=== PATIENT | female | born 2000 | race Caucasian/White ===

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

== ENCOUNTER 2018-01-17 03:31 | Inpatient (IN) ==
--- NOTE | 2018-01-17 04:17 | P.HPOB ---
History of Present Illness Primary Care Physician: Avis Remy MD, R2 - Inpatient Certification I certify that the inpatient services were ordered in accordance with Medicare regulations governing the order. This includes certification that hospital inpatient services are reasonable and necessary and in the case of services not specified as inpatient-only under 42 CFR 419.22(n), that they are appropriately provided as inpatient services in accordance to with the 2-midnight benchmark under 43 CFR 412.3(e) PMFSH - Travel History Recent Travel in the [place] Within the Last 8 Weeks: No Recent Travel Out of the Country Within the Last 8 Weeks: No Medications and Allergies Allergies Allergy/AdvReac Type Severity Reaction Status Date / Time No Known Allergies Allergy Unverified 01/17/18 03:41 Home Medications Medication Instructions Recorded Confirmed Type PNV cmb#95-ferrous fumarate-FA 1 tab PO DAILY 01/03/18 01/17/18 History [] Exam Vital signs: Vital Signs 01/17/18 03:51 01/17/18 03:52 Temperature 98.1 F Pulse Rate 67 Respiratory Rate 17 Blood Pressure 117/65 Intake & Output 01/16/18 01/16/18 01/17/18 06:59 18:59 06:59 Weight 56.699 kg Caprini VTE Risk Assessment Caprini Risk Assessment Model: Point Value = 1 Point Value = 2 Point Value = 3 Point Value = 5 Age 41-60 Minor surgery BMI > 25 kg/m2 Swollen legs Varicose veins or History of unexplained or recurrent spontaneous Oral contraceptives or hormone replacement Sepsis (< 1 month) Serious lung disease, including pneumonia (< 1 month) Abnormal pulmonary function Acute myocardial infarction Congestive heart failure (< 1 month) History of inflammatory bowel disease Medical patient at bed rest Age 61-74 Arthroscopic surgery Major open surgery (> 45 min) Laparoscopic surgery (> 45 min) Malignancy Confined to bed (> 72 hours) Immobilizing plaster cast Central venous access Age >= 75 History of VTE Family history of VTE Factor V Leiden Prothrombin [id number] Lupus anticoagulant Anticardiolipin antibodies Elevated serum homocysteine Heparin-induced thrombocytopenia Other congenital or acquired thrombophilia Stroke (< 1 month) Elective arthroplasty Hip, pelvis, or leg fracture Acute spinal cord injury (< 1 month) Prophylaxis Regimen: Total Risk Factor Score Risk Level Prophylaxis Regimen 0-1 Low Early ambulation 2 Moderate Order ONE of the following: *Sequential Compression Device (SCD) *Heparin 5000 units SQ BID 3-4 Higher Order ONE of the following medications: *Heparin 5000 units SQ TID *Enoxaparin/Lovenox 40 mg SQ daily (WT < 150 kg, CrCl > 30 mL/min) *Enoxaparin/Lovenox 30 mg SQ daily (WT < 150 kg, CrCl > 10-29 mL/min) *Enoxaparin/Lovenox 30 mg SQ BID (WT < 150 kg, CrCl > 30 mL/min) AND/OR *Sequential Compression Device (SCD) 5 or more Highest Order ONE of the following medications: *Heparin 5000 units SQ TID (Preferred with Epidurals) *Enoxaparin/Lovenox 40 mg SQ daily (WT < 150 kg, CrCl > 30 mL/min) *Enoxaparin/Lovenox 30 mg SQ daily (WT < 150 kg, CrCl > 10-29 mL/min) *Enoxaparin/Lovenox 30 mg SQ BID (WT < 150 kg, CrCl > 30 mL/min) AND *Sequential Compression Device (SCD)
--- NOTE | 2018-01-17 04:20 | ED ---
History of Present Illness Primary Care Physician: Avis Remy MD, R2 Chief Complaint: painful contractions History of Present Illness: This is a 17-year-old at 38 weeks (data via ultrasound at 18 weeks) presenting to the OB ED with painful contractions. She is a continuity patient of mine. Estimated due date 01/31/2018. No abnormalities or complications associated with this . She is here with boyfriend and daughter. Patient states that yesterday at 2 PM, she started having contractions. At 1: 30 AM this morning, they became more frequent and painful, about 2-3 minutes apart. Endorses adequate hydration, denies sexual activity. States that before she came to the OB ED, she felt liquid running down her leg while she was showering. Is not sure whether or not she ruptured. Denies vaginal bleeding, abnormal vaginal discharge. Endorses movement. Denies headaches, vision changes, upper abdominal pain. No history of sexually transmitted diseases or infections. Patient had a history of spontaneous at 8 weeks. Had a previous spontaneous vaginal delivery at 40 weeks, delivered a female at 6 pounds 8 ounces. There were no problems or complications with this delivery. labs were performed and within normal limits except for rubella and GBS culture. - Inpatient Certification I certify that the inpatient services were ordered in accordance with Medicare regulations governing the order. This includes certification that hospital inpatient services are reasonable and necessary and in the case of services not specified as inpatient-only under 42 CFR 419.22(n), that they are appropriately provided as inpatient services in accordance to with the 2-midnight benchmark under 43 CFR 412.3(e) Estimated Total Length of Stay (Days): 3 Plans for Post Hospital Care: Home Review of Systems All other systems reviewed negative except as stated in HPI PMFSH - History History Provided By: Patient - Medical / Surgical Hx Neg / Unobtainable Medical Problems Denied: Yes Surgical History: No Previous Surgery - Family History Family History: Family History (Last Updated 01/17/18 @ 04:48 by Avis Remy MD, R2) Other No pertinent family history - Social History I have reviewed the patient's Social History: Yes - Tobacco History Smoking Status: Never smoker - Alcohol History How Often Do You Have a Drink Containing Alcohol: Never - Substance Use History Substance History: No History of Abuse - Travel History Recent Travel in the [facility] Within the Last 8 Weeks: No Recent Travel Out of the Country Within the Last 8 Weeks: No Medications and Allergies Allergies Allergy/AdvReac Type Severity Reaction Status Date / Time No Known Allergies Allergy Unverified 01/17/18 03:41 Home Medications Medication Instructions Recorded Confirmed Type PNV cmb#95-ferrous fumarate-FA 1 tab PO DAILY 01/03/18 01/17/18 History [] Exam Vital signs: Vital Signs 01/17/18 03:51 01/17/18 03:52 Temperature 98.1 F Pulse Rate 67 Respiratory Rate 17 Blood Pressure 117/65 Intake & Output 01/16/18 01/16/18 01/17/18 06:59 18:59 06:59 Weight 56.699 kg Narrative: GENERAL: Well-nourished, well-developed patient. SKIN: Warm and dry. HEAD: Normocephalic and atraumatic. EYES: No scleral icterus. No injection or drainage. ENT: No nasal drainage noted. Mucous membranes pink. Airway patent. NECK: Supple, trachea midline. No JVD. CARDIOVASCULAR: Regular rate and rhythm without murmurs, gallops, or rubs. RESPIRATORY: Breath sounds equal bilaterally. No accessory muscle use. ABDOMEN/GI: Abdomen soft, non-tender, bowel sounds present, no rebound, no guarding Gravid to 40 weeks size GENITOURINARY: External Genitalia: intact and normal in appearance Cervix: [] Dilatation: 5 cm Effacement: 80% Station: -1 Presentation: vertex Membranes: [ruptured] Uterine Contractions: q2-3 min FHT's: Category: 1 Baseline: 130 Reactive: yes Variability: mod Results - Labs CBC & Chem 7: 01/17/18 04:30 01/17/18 04:30 Assessment and Plan - Diagnosis (1) with 38 completed weeks gestation Code(s): Z3A.38 - 38 weeks gestation of Status: Acute - Plan A/P Patient is a 17 year old at 38/0 wks gestation who presents to OB ED with contraction. Category 1 tracing. /-1. Amnisure negative. Expectant management for vaginal delivery. //Intrauterine @38 wks: - Clear liquid diet - Epidural requested for pain - rapid GBS ordered - U/A, rubella, and type and screen pending Discussed w/Dr. Gama Discharge Plan - Discharge Disposition Patient Disposition: 30 Still Patient - Physicians Team ED Provider: Keli Gama V Primary Care Provider: Avis Remy
[2018-01-17] MEDS ORDERED: fentaNYL 2MCG-Bupiv 0.125% Epi 150 ML EPIDURAL ONE (04:23)
[2018-01-17] MEDS ORDERED: Sod Chloride 0.9% Inj 1,000 ML IV.CONT PRN (04:33)
[2018-01-17] MEDS ORDERED: Naloxone Inj 0.4 MG/ML Vial IV.PUSH PRN ×2 (04:33→12:00)
[2018-01-17] MEDS ORDERED: fentaNYL Citrate Inj 100 MCG/2 ML Ampul IV.PUSH PRN ×2 (04:33)
[2018-01-17] MEDS ORDERED: Sodium Chlor 0.9% Inj 500 ML IV.SIG PRN (04:33)
[2018-01-17] MEDS ORDERED: Oxytocin 30 Units/500ml Premix 30 UNITS/500 ML BAG IV.SIG ONE (04:33)
[2018-01-17] MEDS ORDERED: Citric Acid/Sodium Citrate Liq 30 ML UDC PO SCH (04:45)
[2018-01-17 04:50] LABS: Baso # (Auto) 0.1 th/mm3 (0.0-0.2); Baso % (Auto) 0.5 % (0.0-2.0); Eos # (Auto) 0.1 th/mm3 (0.0-0.4); Eos % (Auto) 0.9 % (0.0-4.0); Hematocrit 30.9 % (35.0-46.0); Hemoglobin 9.8 gm/dL (11.6-15.3); Lymph # (Auto) 2.1 th/mm3 (1.0-4.8); Lymph % (Auto) 22.3 % (9.0-44.0); Mean Corpuscular HGB Conc 31.7 % (32.0-36.0); Mean Corpuscular Hemoglobin 21.9 pg (27.0-34.0); Mean Corpuscular Volume 69.2 fL (80.0-100.0); Mean Platelet Volume 9.3 fL (7.0-11.0); Mono # (Auto) 0.7 th/mm3 (0.0-0.9); Mono % (Auto) 7.2 % (0.0-8.0); Neut # (Auto) 6.6 th/mm3 (1.8-7.7); Neut % (Auto) 69.1 % (16.0-70.0); Platelet Count 218 th/mm3 (150-450); Red Blood Count 4.46 mil/mm3 (4.00-5.30); White Blood Count 9.5 th/mm3 (4.0-11.0)
[2018-01-17 04:53] LABS: Bacteria,Urine Rare /hpf; Bilirubin,Urine Negative (Negative); Clarity,Urine Clear (Clear); Color,Urine Yellow (Yellw/Straw); Glucose,Urine (UA) Negative (Negative); Leukocyte Esterase,Urine Negative (Negative); Mucus,Urine Few /lpf (Occasional); Nitrite,Urine Negative (Negative); Squamous Epithelial Cell,Urine 1 /hpf (0-5)
[2018-01-17 04:54] LABS: Amphetamine Urine With Conf Neg (Neg); Benzodiazepine Urine With Conf Neg (Neg)
--- NOTE | 2018-01-17 04:58 | P.HPOB ---
History of Present Illness Primary Care Physician: Avis Remy MD, R2 Chief Complaint: painful contractions History of Present Illness: This is a 17-year-old at 38 weeks (data via ultrasound at 18 weeks) presenting to the OB ED with painful contractions. She is a continuity patient of mine. Estimated due date 01/31/2018. No abnormalities or complications associated with this . She is here with boyfriend and daughter. Patient states that yesterday at 2 PM, she started having contractions. At 1: 30 AM this morning, they became more frequent and painful, about 2-3 minutes apart. Endorses adequate hydration, denies sexual activity. States that before she came to the OB ED, she felt liquid running down her leg while she was showering. Is not sure whether or not she ruptured. Denies vaginal bleeding, abnormal vaginal discharge. Endorses movement. Denies headaches, vision changes, upper abdominal pain. No history of sexually transmitted diseases or infections. Patient had a history of spontaneous at 8 weeks. Had a previous spontaneous vaginal delivery at 40 weeks, delivered a female at 6 pounds 8 ounces. There were no problems or complications with this delivery. labs were performed and within normal limits except for rubella and GBS culture. - Inpatient Certification I certify that the inpatient services were ordered in accordance with Medicare regulations governing the order. This includes certification that hospital inpatient services are reasonable and necessary and in the case of services not specified as inpatient-only under 42 CFR 419.22(n), that they are appropriately provided as inpatient services in accordance to with the 2-midnight benchmark under 43 CFR 412.3(e) Estimated Total Length of Stay (Days): 3 Plans for Post Hospital Care: Home Review of Systems All other systems reviewed negative except as stated in HPI PMFSH - History History Provided By: Patient - Medical / Surgical Hx Neg / Unobtainable Medical Problems Denied: Yes Surgical History: No Previous Surgery - Family History Family History: Family History (Last Updated 01/17/18 @ 04:48 by Avis Remy MD, R2) Other No pertinent family history - Social History I have reviewed the patient's Social History: Yes - Tobacco History Smoking Status: Never smoker - Alcohol History How Often Do You Have a Drink Containing Alcohol: Never - Substance Use History Substance History: No History of Abuse - Travel History Recent Travel in the [facility] Within the Last 8 Weeks: No Recent Travel Out of the Country Within the Last 8 Weeks: No Medications and Allergies Allergies Allergy/AdvReac Type Severity Reaction Status Date / Time No Known Allergies Allergy Unverified 01/17/18 03:41 Home Medications Medication Instructions Recorded Confirmed Type PNV cmb#95-ferrous fumarate-FA 1 tab PO DAILY 01/03/18 01/17/18 History [] Exam Vital signs: Vital Signs 01/17/18 03:51 01/17/18 03:52 Temperature 98.1 F Pulse Rate 67 Respiratory Rate 17 Blood Pressure 117/65 Intake & Output 01/16/18 01/16/18 01/17/18 06:59 18:59 06:59 Weight 56.699 kg Narrative: GENERAL: Well-nourished, well-developed patient. SKIN: Warm and dry. HEAD: Normocephalic and atraumatic. EYES: No scleral icterus. No injection or drainage. ENT: No nasal drainage noted. Mucous membranes pink. Airway patent. NECK: Supple, trachea midline. No JVD. CARDIOVASCULAR: Regular rate and rhythm without murmurs, gallops, or rubs. RESPIRATORY: Breath sounds equal bilaterally. No accessory muscle use. ABDOMEN/GI: Abdomen soft, non-tender, bowel sounds present, no rebound, no guarding Gravid to 40 weeks size GENITOURINARY: External Genitalia: intact and normal in appearance Cervix: [] Dilatation: 5 cm Effacement: 80% Station: -1 Presentation: vertex Membranes: [ruptured] Uterine Contractions: q2-3 min FHT's: Category: 1 Baseline: 130 Reactive: yes Variability: mod Results - Labs CBC & Chem 7: 01/17/18 04:30 01/17/18 04:30 Assessment and Plan - Diagnosis (1) with 38 completed weeks gestation Code(s): Z3A.38 - 38 weeks gestation of Status: Acute - Plan A/P Patient is a 17 year old at 38/0 wks gestation who presents to OB ED with contraction. Category 1 tracing. 80/-1. Amnisure negative. Expectant management for vaginal delivery. //Intrauterine @38 wks: - Clear liquid diet - Epidural requested for pain - rapid GBS ordered - U/A, rubella, and type and screen pending Discussed w/Dr. Gama
[2018-01-17 05:00] LABS: Alanine Aminotransferase 13 U/L (9-42); Albumin 2.7 g/dL (3.4-5.0); Anion Gap 12 meq/L (5-15); Aspartate Aminotransferase 26 U/L (16-38); Blood Urea Nitrogen 3 mg/dL (7-18); Calcium 8.1 mg/dL (8.5-10.1); Carbon Dioxide 22.2 meq/L (21.0-32.0); Chloride 107 meq/L (98-107); Glomerular Filtration Rate Greater Than 89 mL/min (>89); Glucose,Random 90 mg/dL (74-106); Potassium 3.9 meq/L (3.5-5.1); Sodium 141 meq/L (136-145)
[2018-01-17 05:03] LABS: Alkaline Phosphatase 300 U/L (45-117); Total Protein 6.7 g/dL (6.4-8.2)
[2018-01-17] MEDS ORDERED: Lidocaaine 1.5%/Epinephrine 1:200,000 PF Inj 5 ML Amp ONE (05:16)
[2018-01-17] MEDS ORDERED: fentaNYL 2MCG-Bupiv 0.125% Epi 150 ML EPIDURAL PRN (05:50)
[2018-01-17] MEDS ORDERED: fentaNYL Citrate Inj 100 MCG/2 ML Ampul EPIDURAL ONE (05:50)
--- NOTE | 2018-01-17 06:34 | P.OBLABOR ---
Objective Vital Signs: Vital Signs - 8 hr 01/17/18 03:51 01/17/18 03:52 01/17/18 05:14 Temperature 98.1 F Pulse Rate 67 76 Respiratory Rate 17 Blood Pressure 117/65 133/62 01/17/18 05:16 01/17/18 05:25 01/17/18 05:29 Temperature Pulse Rate 76 84 Respiratory Rate 22 Blood Pressure 114/80 111/61 01/17/18 05:30 01/17/18 05:35 01/17/18 05:40 Temperature Pulse Rate 74 81 76 Respiratory Rate Blood Pressure 113/54 L 100/83 112/58 L 01/17/18 05:45 01/17/18 05:50 01/17/18 05:55 Temperature Pulse Rate 68 73 92 H Respiratory Rate Blood Pressure 111/62 118/61 116/91 H Objective: Pelvic Exam: Performed by nursing before I arrived. Cervix: [-] Dilatation: 7 Effacement: 90 Station: -1 Presentation: vertex Membranes: [intact] Uterine Contractions: 2-3 min FHT's: Category: [1] Baseline: [130] Reactive: [yes] Variability: [mod] Decels: [no] Assessment and Plan - Diagnosis (1) with 38 completed weeks gestation Code(s): Z3A.38 - 38 weeks gestation of Status: Acute - Plan A/P Patient is a 17 year old at 38/0 wks gestation admitted for labor. FHT reassuring, progressing well, is now 7 cm dilated. Membranes still intact, Contraction MVUs <200. Epidural [address]. Expectant management for vaginal delivery.
--- NOTE | 2018-01-17 09:59 | P.OBLABOR ---
Subjective Interval history: Patient states she is doing well. No problems or complaints. Objective Vital Signs: Vital Signs - 8 hr 01/17/18 03:51 01/17/18 03:52 01/17/18 05:14 Temperature 98.1 F Pulse Rate 67 76 Respiratory Rate 17 Blood Pressure 117/65 133/62 01/17/18 05:16 01/17/18 05:25 01/17/18 05:29 Temperature Pulse Rate 76 84 Respiratory Rate 22 Blood Pressure 114/80 111/61 01/17/18 05:30 01/17/18 05:35 01/17/18 05:40 Temperature Pulse Rate 74 81 76 Respiratory Rate Blood Pressure 113/54 L 100/83 112/58 L 01/17/18 05:45 01/17/18 05:50 01/17/18 05:55 Temperature Pulse Rate 68 73 92 H Respiratory Rate Blood Pressure 111/62 118/61 116/91 H 01/17/18 06:16 01/17/18 06:30 01/17/18 06:45 Temperature Pulse Rate 76 69 84 Respiratory Rate Blood Pressure 118/54 L 121/58 L 115/62 01/17/18 06:59 01/17/18 07:00 01/17/18 08:07 Temperature 98.3 F Pulse Rate 73 77 Respiratory Rate 18 Blood Pressure 130/67 120/50 L 01/17/18 08:15 01/17/18 09:00 01/17/18 09:53 Temperature 97.9 F Pulse Rate 71 Respiratory Rate 18 18 18 Blood Pressure 102/41 L Objective: Pelvic Exam: Cervix: midline Dilatation: 8 cm Effacement: 90 Station: 0 Presentation: [-] Membranes: ruptured during exam Uterine Contractions: irregular FHT's: Category: 1 Baseline: 130 Reactive: yes Variability: mod Decels: no Assessment and Plan - Diagnosis (1) with 38 completed weeks gestation Code(s): Z3A.38 - 38 weeks gestation of Status: Acute - Plan A/P: Patient is a 17 year old at 38/0 wks gestation admitted for labor. Membranes ruptured during exam. , FHT Cat 1. Con't expectant management.
[2018-01-17] MEDS ORDERED: Oxytocin 30 Units/500ml Premix 30 UNITS/500 ML BAG IV.SIG PRN (10:16)
--- NOTE | 2018-01-17 11:42 | P.OBLABOR ---
Subjective Interval history: Mom doing ok. Objective Vital Signs: Vital Signs - 8 hr 01/17/18 03:51 01/17/18 03:52 01/17/18 05:14 Temperature 98.1 F Pulse Rate 67 76 Respiratory Rate 17 Blood Pressure 117/65 133/62 01/17/18 05:16 01/17/18 05:25 01/17/18 05:29 Temperature Pulse Rate 76 84 Respiratory Rate 22 Blood Pressure 114/80 111/61 01/17/18 05:30 01/17/18 05:35 01/17/18 05:40 Temperature Pulse Rate 74 81 76 Respiratory Rate Blood Pressure 113/54 L 100/83 112/58 L 01/17/18 05:45 01/17/18 05:50 01/17/18 05:55 Temperature Pulse Rate 68 73 92 H Respiratory Rate Blood Pressure 111/62 118/61 116/91 H 01/17/18 06:16 01/17/18 06:30 01/17/18 06:45 Temperature Pulse Rate 76 69 84 Respiratory Rate Blood Pressure 118/54 L 121/58 L 115/62 01/17/18 06:59 01/17/18 07:00 01/17/18 08:07 Temperature 98.3 F Pulse Rate 73 77 Respiratory Rate 18 Blood Pressure 130/67 120/50 L 01/17/18 08:15 01/17/18 09:00 01/17/18 09:53 Temperature 97.9 F Pulse Rate 71 Respiratory Rate 18 18 18 Blood Pressure 102/41 L 01/17/18 09:54 01/17/18 10:31 01/17/18 11:15 Temperature Pulse Rate 65 61 79 Respiratory Rate Blood Pressure 107/60 109/55 L 01/17/18 11:20 01/17/18 11:35 Temperature Pulse Rate 81 84 Respiratory Rate Blood Pressure Objective: Pelvic Exam: Cervix: [midline] Dilatation: [8 cm] Effacement: [90] Station: [0] Presentation: [left occiput transverse] Membranes: [ruptured] Uterine Contractions: [irregular] FHT's: Category: [2] Baseline: [120] Reactive: [yes] Variability: [-] Decels: [-] Assessment and Plan - Diagnosis (1) with 38 completed weeks gestation Code(s): Z3A.38 - 38 weeks gestation of Status: Acute - Plan A/P: Patient is a 17 year old at 38/0 wks gestation admitted for labor. Appears to be failing to progress. Based on vaginal exam, this is likely due to baby position. Plan to change Mom positions and resume Pit starting out at a low level. Recheck in 1 hour. Discussed w/Dr. Durand
[2018-01-17] MEDS ORDERED: Benzocaine 20% Top Spray 60 ML Can TOPICAL PRN (12:00)
[2018-01-17] MEDS ORDERED: Zolpidem Tartrate 5 MG Tablet PO PRN (12:00)
[2018-01-17] MEDS ORDERED: Acetaminophen 325 MG Tablet PO PRN (12:00)
[2018-01-17] MEDS ORDERED: Witch Hazel 50%/Glyderin 12.5% 40 Pad Jar RECTAL PRN (12:00)
[2018-01-17] MEDS ORDERED: Bisacodyl 10 MG Supp RECTAL PRN (12:00)
[2018-01-17] MEDS ORDERED: Oxytocin 30 Units/500ml Premix 30 UNITS/500 ML BAG IV.CONT PRN (12:00)
--- NOTE | 2018-01-17 12:00 | P.OBDELI ---
Weeks Gestation: 38 Artificial Rupture of Membrane: Yes Artificial ROM Date: 01/17/18 Artificial ROM Time: 09:00 Anesthesia: Epidural Episiotomy: none Vaginal Delivery: Normal, Spontaneous Presentation: Occiput anterior Nuchal Cord: x1 (loose) Delayed Cord Clamping (45 sec): Yes Placenta: Spontaneous delivery, Intact, Uterus explored +, 3 vessel cord Laceration: None Estimated blood loss (mL): 50 Infant: Male Male A Delivery Date: 01/17/18 Delivery Time: 11:50 Weight: 2770 kg score (1 min): 9 score (5 min): 9
[2018-01-17] MEDS ORDERED: Measles/Mumps/Rubella Vaccine Inj 0.5 ML Vial SQ ONE (16:00)
[2018-01-17] MEDS ORDERED: Diphtheria/Tetanus/Pertussis Vaccine Inj 0.5 ML Syringe IM ONE (16:00)
[2018-01-17] MEDS ORDERED: Senna/Docusate Sodium 8.6/50 MG Tablet PO SCH (21:00)
--- NOTE | 2018-01-18 08:18 | P.PNOB ---
Subjective Post day: 1 Interval history: Patient is a 17-year-old delivered at 38 weeks. Patient is day 1 after . Patient's pain is well-controlled. Patient reports eating and drinking without any nausea or vomiting. Patient reports minimal bleeding. Patient has passed gas but no bowel movements. Patient is walking without lower extremity pain or shortness of breath. Patient reports desire for contraception and breast-feeding. Objective Vital Signs/I&O: Vital Signs 01/17/18 09:00 01/17/18 09:53 01/17/18 09:54 Temperature 97.9 F Pulse Rate 71 65 Respiratory Rate 18 18 Blood Pressure 102/41 L 107/60 01/17/18 10:31 01/17/18 10:45 01/17/18 11:15 Temperature Pulse Rate 61 79 Respiratory Rate 18 Blood Pressure 109/55 L 01/17/18 11:20 01/17/18 11:35 01/17/18 11:40 Temperature Pulse Rate 81 84 99 H Respiratory Rate Blood Pressure 01/17/18 12:00 01/17/18 12:06 01/17/18 12:07 Temperature Pulse Rate 69 73 69 Respiratory Rate Blood Pressure 181/151 H 112/58 L 01/17/18 12:15 01/17/18 12:33 01/17/18 12:58 Temperature Pulse Rate 69 63 62 Respiratory Rate 18 18 18 Blood Pressure 114/59 L 120/72 105/58 L 01/17/18 12:59 01/17/18 14:24 01/17/18 20:00 Temperature 98.9 F 98.4 F 98.0 F Pulse Rate 16 L 74 Respiratory Rate 16 18 Blood Pressure 115/64 120/69 Intake & Output 01/17/18 01/18/18 01/18/18 18:59 06:59 18:59 Intake Total 1999 Balance 1999 Intake: IV 1999 LR 1000 mL Inj 1,000 ML @ 125 1999 / 1999 mls/hr IV.CONT .Q8H [facility] Rx#: [id number] Result Diagrams: 01/18/18 09:00 01/17/18 04:30 Objective Remarks: GENERAL: Well-nourished, well-developed patient. CARDIOVASCULAR: Regular rate and rhythm without murmurs, gallops, or rubs. RESPIRATORY: Breath sounds equal bilaterally. No accessory muscle use. ABDOMEN/GI: Abdomen soft, non-tender. Fundus: Firm, non-tender at umbilicus. GENITOURINARY: Light to moderate bleeding. EXTREMITIES: No cyanosis or edema, non-tender, without signs of DVT. Medications and IVs: Active Medications Acetaminophen (Tylenol) 650 mg PO Q4H PRN PRN Reason: PAIN SCALE 1 TO 2 Al Hydroxide/Mg Hydroxide (Milk Of Magnesia Liq) 30 ml PO Q12H PRN PRN Reason: Mild Constipation Benzocaine (Americaine 20% [place]) 1 spray TOPICAL Q4H PRN PRN Reason: For Perineum Discomfort Bisacodyl (Dulcolax Supp) 10 mg RECTAL DAILY PRN PRN Reason: SEVERE CONSITIPATION Citric Acid/Sodium Citrate (Sodium Citrate/Citric Acid Liq) 30 ml PO [employer] [facility] Stop: 01/21/18 04:44 Fentanyl Citrate (Fentanyl Inj) 50 mcg IV.PUSH Q1H PRN PRN Reason: Pain Scale 3 - 5 Last Admin: 01/17/18 04:41 Dose: 50 mcg Fentanyl Citrate (Fentanyl Inj) 100 mcg IV.PUSH Q1H PRN PRN Reason: PAIN SCALE 6 TO 10 Lactated Ringer's (Lr 1000 Ml Inj) 1,000 mls @ 125 mls/hr IV.CONT .Q8H [facility] Last Admin: 01/18/18 06:14 Dose: Not Given Lactated Ringer's (Lr 1000 Ml Inj) 1,000 mls @ 3,000 mls/hr IV.SIG UNSCH PRN PRN Reason: compromise or epidural Sodium Chloride (Ns Inj) 500 mls @ 1,000 mls/hr IV.SIG UNSCH PRN PRN Reason: SEE LABEL COMMENTS Sodium Chloride (Ns Inj) 1,000 mls @ 100 mls/hr IV.CONT .Q10H PRN PRN Reason: SEE LABEL COMMENTS Fentanyl/Bupivacaine/Sodium Chlor (Fentanyl 2 Mcg-Bupiv 0.125% Epi) 150 mls @ 10 mls/hr EPIDURAL PRN PRN PRN Reason: for Labor Pain Last Admin: 01/17/18 06:03 Dose: 10 mls/hr Oxytocin (Pitocin 30 Units/Ns 500 Ml Premix) 30 units in 500 mls @ 1 mls/hr IV.SIG TITRATE PRN; Protocol PRN Reason: For induction of labor Last Admin: 01/17/18 10:30 Dose: 1 milliunit/min, 1 mls/hr Oxytocin (Pitocin 30 Units/Ns 500 Ml Premix) 30 units in 500 mls @ 100 mls/hr IV.CONT UNSCH PRN PRN Reason: Heavy bleeding Ibuprofen (Motrin) 800 mg PO Q8H PRN PRN Reason: For Cramping Last Admin: 01/18/18 03:31 Dose: 800 mg Lactulose (Lactulose Liq) 30 ml PO DAILY PRN PRN Reason: SEVERE CONSITIPATION Lidocaine HCl (Xylocaine 1% Inj) 0.1 ml I-DERMAL PRN PRN PRN Reason: For IV start Stop: 01/20/18 04:32 Lidocaine HCl (Xylocaine 1% Inj) 10 ml INFILTRATN PRN PRN PRN Reason: For episiotomy repair Stop: 01/19/18 04:32 Mineral Oil (Muri-Lube Oil) 10 ml TOPICAL PRN PRN PRN Reason: PRN perineal massage Naloxone HCl (Narcan Inj) 0.1 mg IV.PUSH Q2M PRN PRN Reason: for opiate reversal Naloxone HCl (Narcan Inj) 0.1 mg IV.PUSH Q2M PRN PRN Reason: for opiate reversal Ondansetron HCl (Zofran Odt) 4 mg PO Q6H PRN PRN Reason: NAUSEA OR VOMITING Vit/Calcium/Iron/Folic Ac (Stuartnatal Plus 3) 1 tab PO DAILY [facility] Senna/Docusate Sodium (Yanci-Colace) 1 tab PO BID [facility] Sennosides (Senokot) 17.2 mg PO Q12H PRN PRN Reason: Moderate Constipation Sodium Chloride (Ns Flush) 2 ml IV.FLUSH PRN PRN PRN Reason: FLUSH AFTER USING IV ACCESS Sodium Chloride (Ns Flush) 2 ml IV.FLUSH BID [facility] Last Admin: 01/18/18 06:14 Dose: Not Given Sodium Chloride (Ns Flush) 2 ml IV.FLUSH BID [facility] Last Admin: 01/18/18 06:15 Dose: Not Given Sodium Chloride (Ns Flush) 2 ml IV.FLUSH PRN PRN PRN Reason: FLUSH AFTER USING IV ACCESS Witch [place]ry/Glycerin (Tucks Pads) 1 applicatio RECTAL QID PRN PRN Reason: HEMORRHOIDS Zolpidem Tartrate (Ambien) 5 mg PO HS PRN PRN Reason: SLEEP Assessment and Plan - Diagnosis (1) with 38 completed weeks gestation Code(s): Z3A.38 - 38 weeks gestation of Status: Acute - Plan Patient is day 1 after . Patient was counseled to do 6 weeks of pelvic rest. Patient was counseled to follow up in 6 weeks. Patient requested follow-up and contraception. --AF VSS --Continue routine care --Motrin and Tylenol when necessary for pain --Encourage OOB --Pelvic rest for 6 weeks will need follow-up appointment at that time. --Contraception: Requests copper IUD. Will have patient obtain and further discuss at next visit w/PCP --Planning to breastfeed DC possible today.
[2018-01-18 08:43] VITALS: BP 108/54
[2018-01-18 08:44] VITALS: PULSE 68; RESP 21; TEMP 98.3
[2018-01-18] MEDS ORDERED: Prenatal Vit/Ca/Iron/Folic Acid Tablet PO SCH (09:00)
[2018-01-18 09:26] LABS: Hematocrit 32.2 % (35.0-46.0); Hemoglobin 10.1 gm/dL (11.6-15.3); Mean Corpuscular HGB Conc 31.3 % (32.0-36.0); Mean Corpuscular Hemoglobin 21.9 pg (27.0-34.0); Mean Platelet Volume 8.9 fL (7.0-11.0); Platelet Count 210 th/mm3 (150-450); Red Cell Distribution Width 16.7 % (11.6-17.2); White Blood Count 11.7 th/mm3 (4.0-11.0)
[2018-01-18] MEDS ORDERED: Influenza (Quadrivalent) Vaccine 0.5 ML Syringe IM ONE (09:45)
== END 2018-01-18 17:27 | disposition home or self-care (01) ==
LOC: HOBED 03:31 → H2E 03:59 → H1EA 14:10
PROVIDERS: ADMIT Obstetrics & Gynecology; ATTEND Obstetrics & Gynecology